=== PATIENT | female | born 1975 | race American Indian/Alaskan Native ===

== ENCOUNTER 2016-10-23 06:59 | Emergency (ER) | payer BC, OTHER ==
[2016-10-23 07:09] VITALS: BP 121/87
--- NOTE | 2016-10-23 07:10 | EDM.PDOC ---
ED HPI GENERAL MEDICAL PROBLEM - General Chief Complaint: General Stated Complaint: tooth pain Time Seen by Provider: 10/23/16 07:08 Source of Information: Reports: Patient, RN, RN Notes Reviewed History Limitations: Reports: No Limitations - History of Present Illness INITIAL COMMENTS - FREE TEXT/NARRATIVE: C/O dental pain began yesterday at Rt upper molar. Pt was unable to see dentist , but has appt. for the day after tomorrow. Denies facial swelling, fever, chills, or drainage. Duration: Constant Location: Reports: Other (mouth) Quality: Reports: Ache, Throbbing Severity: Severe Improves with: Reports: None Worsens with: Reports: Eating Associated Symptoms: Reports: No Other Symptoms Treatments BAIL BONDSMAN: Reports: Acetaminophen, Other Medication(s) Right Upper Oral/Mouth Pain Score (Numeric/FACES): 10 - Related Data Allergies Allergy/AdvReac Type Severity Reaction Status Date / Time amoxicillin Allergy Rash Verified 10/23/16 07:06 Home Meds: Home Meds . [No Known Home Meds] 11/18/15 [History] Past Medical History - Past Health History Medical/Surgical History: Denies Medical/Surgical History Social & Family History - Family History Family Medical History: Noncontributory - Tobacco Use Smoking Status *Q: Never Smoker - Recreational Drug Use Recreational Drug Use: No - Living Situation & Occupation Living situation: Reports: with Family ED ROS GENERAL - Review of Systems Review Of Systems: ROS reveals no pertinent complaints other than HPI. ED EXAM, GENERAL - Physical Exam Exam: See Below Exam Limited By: No Limitations General Appearance: Alert, WD/WN, No Apparent Distress Eye Exam: Bilateral Eye: Normal Inspection Ears: Normal External Exam Nose: Normal Inspection Throat/Mouth: Normal Lips, Normal Oropharynx, Normal Voice, No Airway Compromise , Other (mild swelling of gum at Rt 1st molar, no fluctuance, no drainage) Head: Atraumatic, Normocephalic. No: Facial Swelling Neck: Normal Inspection Respiratory/Chest: No Respiratory Distress Neurological: Alert, Oriented, No Motor/Sensory Deficits Psychiatric: Normal Mood Skin Exam: Warm, Dry, Intact, Normal Color, No Rash Course - Vital Signs Last Recorded V/S: Last Vital Signs Temp 36.7 C 10/23/16 07:07 Pulse 69 10/23/16 07:07 Resp 20 10/23/16 07:07 BP 121/87 10/23/16 07:07 Pulse Ox 100 10/23/16 07:07 - Orders/Labs/Meds Orders: Active Orders 24 hr Category Date Time Status Clindamycin HCl [Cleocin] Med 10/23/16 07:19 Once 300 mg PO ONETIME ONE Lidocaine 2% [Xylocaine 2% Viscous] Med 10/23/16 07:18 Once 15 ml MUCMEM ONETIME ONE traMADol [Ultram] Med 10/23/16 07:19 Once 50 mg PO ONETIME ONE Departure - Departure Time of Disposition: 07:30 Disposition: Home, Self-Care 01 Condition: Good Clinical Impression: Dental abscess - Discharge Information Instructions: Dental Abscess, [id number] Forms: ED Department Discharge Additional Instructions: Rx: Clindamycin 300mg Rx: Viscous Lidocaine 2% Rx: Toradol 10mg Follow up with dentist at the first available appointment. - My Orders Last 24 Hours: My Active Orders 10/23/16 07:18 Lidocaine 2% [Xylocaine 2% Viscous] 15 ml MUCMEM ONETIME ONE 10/23/16 07:19 Clindamycin HCl [Cleocin] 300 mg PO ONETIME ONE traMADol [Ultram] 50 mg PO ONETIME ONE - Assessment/Plan Last 24 Hours: My Active Orders 10/23/16 07:18 Lidocaine 2% [Xylocaine 2% Viscous] 15 ml MUCMEM ONETIME ONE 10/23/16 07:19 Clindamycin HCl [Cleocin] 300 mg PO ONETIME ONE traMADol [Ultram] 50 mg PO ONETIME ONE
[2016-10-23] MEDS ORDERED: Lidocaine 2% Viscous Solution 15 ML Cup MUCMEM ONE (07:18)
[2016-10-23] MEDS ORDERED: Clindamycin HCl 150 MG Cap PO ONE (07:19)
[2016-10-23] MEDS ORDERED: traMADol 50 MG Tab PO ONE (07:19)
== END 2016-10-23 07:35 | disposition home or self-care (01) ==
LOC: DL.ED 06:59
DX: K04.7 Periapical abscess without sinus (principal); Z88.1 Allergy status to other antibiotic agents
CPT/HCPCS: 99282

== ENCOUNTER 2016-10-24 00:24 | Emergency (ER) | payer OTHER ==
[2016-10-24 00:31] VITALS: BP 133/76
[2016-10-24] MEDS ORDERED: Sodium Chloride 0.9% 1,000 ML IV ONE (01:03)
[2016-10-24] MEDS ORDERED: metroNIDAZOLE/Normal Saline 500 MG in Premix Bag 100 BAG IV ONE (01:07)
[2016-10-24] MEDS ORDERED: Acetaminophen/oxyCODONE 325-5 MG Tab PO ONE ×2 (01:09→03:01)
[2016-10-24 01:41] LABS: CHLORIDE,CL 103 mmol/L (101-111); SODIUM,NA 138 mmol/L (135-145)
--- NOTE | 2016-10-24 02:33 | EDM.PDOC ---
ED HPI GENERAL MEDICAL PROBLEM - General Chief Complaint: ENT Problem Stated Complaint: FACIAL SWELLING Time Seen by Provider: 10/24/16 00:45 Source of Information: Reports: Patient History Limitations: Reports: No Limitations - History of Present Illness INITIAL COMMENTS - FREE TEXT/NARRATIVE: c/o of increased facial swelling this angela. Was seen earlier today for dental abscess. Has had 3 doses of antibiotic today. No fever. Pain tolerable with Tramadol. Right Face Pain Score (Numeric/FACES): 8 - Related Data Allergies Allergy/AdvReac Type Severity Reaction Status Date / Time amoxicillin Allergy Rash Verified 10/24/16 00:31 Home Meds: Home Meds Clindamycin HCl [Cleocin] 300 mg PO Q6H 10/24/16 [History] Ketorolac [Toradol] 10 mg PO Q6H PRN 10/24/16 [History] Past Medical History - Past Health History Medical/Surgical History: Denies Medical/Surgical History Social & Family History - Family History Family Medical History: Noncontributory - Tobacco Use Smoking Status *Q: Never Smoker Second Hand Smoke Exposure: No - Caffeine Use Caffeine Use: Reports: Coffee - Recreational Drug Use Recreational Drug Use: No - Living Situation & Occupation Living situation: Reports: with Family ED ROS ENT - Review of Systems Review Of Systems: ROS reveals no pertinent complaints other than HPI. ED EXAM, ENT - Physical Exam Exam: See Below Exam Limited By: No Limitations General Appearance: Alert, Mild Distress Eye Exam: Bilateral Eye: EOMI, PERRL Ears: Normal External Exam Nose: Normal Inspection Mouth/Throat: Dental Abcess (right upper 2nd molar), Dental Tenderness Head: Atraumatic, Normocephalic, Facial Swelling (right) Neck: Normal Inspection, Lymphadenopathy (R) Respiratory/Chest: No Respiratory Distress, Lungs Clear, Normal Breath Sounds Cardiovascular: Normal Peripheral Pulses, Regular Rate, Rhythm GI/Abdominal: Normal Bowel Sounds, Soft Neurological: Alert, Oriented Psychiatric: Normal Affect, Normal Mood Skin: Warm, Dry, Intact, Erythema (right facial) Course - Vital Signs Last Recorded V/S: Last Vital Signs Temp 99.1 F 10/24/16 00:27 Pulse 87 10/24/16 00:27 Resp 18 10/24/16 00:27 BP 133/76 10/24/16 00:27 Pulse Ox 95 10/24/16 00:27 - Orders/Labs/Meds Labs: Laboratory Tests 10/24/16 10/24/16 10/24/16 Range/Units 01:10 01:10 01:10 WBC 10.2 H (5.0-10.0) 10^3/uL RBC 4.83 (4.2-5.4) 10^6/uL Hgb 10.4 L (12.0-16.0) g/dL Hct 34.3 L (37.0-47.0) % MCV 71.0 L (80-100) fL MCH 21.5 L (27.0-34.0) pg MCHC 30.3 L (33.0-35.0) g/dL Plt Count 308 (150-450) 10^3/uL Neut % (Auto) 73.7 (42.2-75.2) % Lymph % (Auto) 13.1 L (20.5-50.1) % [place] % (Auto) 12.1 H (2-8) % Eos % (Auto) 0.7 L (1.0-3.0) % Baso % (Auto) 0.4 (0.0-1.0) % Sodium 138 (135-145) mmol/L Potassium 3.4 L (3.6-5.0) mmol/L Chloride 103 (101-111) mmol/L Carbon Dioxide 24.0 (21.0-31.0) mmol/L Anion Gap 14.4 BUN 6 L (7-18) mg/dL Creatinine 0.7 (0.6-1.3) mg/dL Est Cr Clr Drug Dosing TNP Estimated GFR (MDRD) > 60 BUN/Creatinine Ratio 8.57 Glucose 118 H (74-105) mg/dL Lactic Acid 0.6 (0.5-2.2) mmol/L Calcium 8.9 (8.4-10.2) mg/dl Total Bilirubin 0.9 (0.2-1.0) mg/dL AST 26 (10-42) IU/L ALT 42 (10-60) IU/L Alkaline Phosphatase 65 (42-121) IU/L C-Reactive Protein (0.0-1.3) mg/dL Total Protein 7.4 (6.7-8.2) g/dl Albumin 3.7 (3.2-5.5) g/dl Globulin 3.7 Albumin/Globulin Ratio 1.00 10/24/16 Range/Units 01:10 WBC (5.0-10.0) 10^3/uL RBC (4.2-5.4) 10^6/uL Hgb (12.0-16.0) g/dL Hct (37.0-47.0) % MCV (80-100) fL MCH (27.0-34.0) pg MCHC (33.0-35.0) g/dL Plt Count (150-450) 10^3/uL Neut % (Auto) (42.2-75.2) % Lymph % (Auto) (20.5-50.1) % [place] % (Auto) (2-8) % Eos % (Auto) (1.0-3.0) % Baso % (Auto) (0.0-1.0) % Sodium (135-145) mmol/L Potassium (3.6-5.0) mmol/L Chloride (101-111) mmol/L Carbon Dioxide (21.0-31.0) mmol/L Anion Gap BUN (7-18) mg/dL Creatinine (0.6-1.3) mg/dL Est Cr Clr Drug Dosing Estimated GFR (MDRD) BUN/Creatinine Ratio Glucose (74-105) mg/dL Lactic Acid (0.5-2.2) mmol/L Calcium (8.4-10.2) mg/dl Total Bilirubin (0.2-1.0) mg/dL AST (10-42) IU/L ALT (10-60) IU/L Alkaline Phosphatase (42-121) IU/L C-Reactive Protein 2.3 H (0.0-1.3) mg/dL Total Protein (6.7-8.2) g/dl Albumin (3.2-5.5) g/dl Globulin Albumin/Globulin Ratio Meds: Medications Discontinued Medications Generic Name Dose Route Start Last Admin Trade Name Freq PRN Reason Stop Dose Admin Sodium Chloride 1,000 mls @ 500 mls/hr 10/24/16 01:03 10/24/16 01:12 Normal Saline IV 10/24/16 03:02 500 mls/hr .BOLUS ONE Administration Metronidazole 500 mg/ Premix 100 mls @ 100 mls/hr 10/24/16 01:07 10/24/16 01: 20 IV 10/24/16 02:06 100 mls/hr ONETIME ONE Administration Oxycodone/Acetaminophen 1 tab 10/24/16 01:09 10/24/16 01:20 Percocet 325-5 Mg PO 10/24/16 01:10 1 tab ONETIME ONE Administration Oxycodone/Acetaminophen Confirm 10/24/16 03:01 10/24/16 03:05 Percocet 325-5 Mg Administered 10/24/16 03:02 Not Given Dose 3 tab .ROUTE .STK-MED ONE Departure - Departure Time of Disposition: 02:58 Disposition: Home, Self-Care 01 Condition: Undetermined Clinical Impression: Dental abscess, Facial swelling - Discharge Information Instructions: Dental Abscess, [id number] Forms: ED Department Discharge Additional Instructions: percocet 5/325 one every 6 hours as needed for severe pain warm cloth to face continue clindamycin follow up with dentist on Tuesday Urgent follow up if increased fever, increased swelling of face or uncontrolled pain \
[2016-10-24] MEDS ORDERED: Acetaminophen/oxyCODONE 325-5 MG Tab ONE (03:01)
== END 2016-10-24 03:06 | disposition home or self-care (01) ==
LOC: DL.ED 00:24
DX: K04.7 Periapical abscess without sinus (principal); Z88.1 Allergy status to other antibiotic agents
CPT/HCPCS: 36415; 80053; 83605; 85025; 86140; 96361; 96365; 99283; A9270; J7030

== ENCOUNTER 2021-12-30 01:13 | Emergency (ER) | payer BC, OTHER ==
[2021-12-30 01:39] VITALS: BP 153/100; PULSE 82
[2021-12-30] MEDS: Sodium Chloride 0.9% 1,000 ML IV ONE (02:40)
[2021-12-30] MEDS: Dexamethasone 4 MG/ML SDV IVPUSH ONE (02:41)
[2021-12-30] MEDS: Ketorolac 30 MG/ML SDV IVPUSH ONE (02:43)
[2021-12-30 02:57] LABS: ANION GAP 14.1 mEq/L (7-13); CHLORIDE,CL 97 mmol/L (98-107); SODIUM,NA 135 mmol/L (136-145)
[2021-12-30 02:59] LABS: ESTIMATED GFR 84 mL/min (>=60)
[2021-12-30] MEDS: Clindamycin in 0.9 % Sod Chlor 600 MG in Premix Bag 1 BAG IV ONE ×2 (03:13)
== END 2021-12-30 04:05 | disposition home or self-care (01) ==
LOC: DL.ED 01:13
DX: J36 Peritonsillar abscess (principal); Z88.0 Allergy status to penicillin
CPT/HCPCS: 36415; 80053; 83605; 85025; 86308; 87040; 96361; 96365; 96375; 99283; J1100; J1885; J3490; J7030